=== PATIENT | male | born 1955 | race Two or more races ===

== ENCOUNTER 2021-09-26 17:25 | Emergency (ER) | payer OTHER ==
[~2021-09-26] VITALS: Ht 165.1 cm; Wt 78.0 kg
[2021-09-26] MEDS ORDERED: ALBUTEROL2.5 MG/3 M IH (17:31)
[2021-09-26] MEDS ORDERED: SYMBICORT 16010.2 GM IH (17:31)
[2021-09-26] MEDS ORDERED: MONTELUKAST SOD10 MG PO (17:31)
== END 2021-09-26 22:30 | disposition home or self-care (01) ==
LOC: ER 17:25
DX: M54.50 Low back pain, unspecified (principal); M62.830 Muscle spasm of back

== ENCOUNTER 2022-02-14 14:29 | Emergency (ER) | payer OTHER ==
[~2022-02-14] VITALS: Ht 165.1 cm; Wt 76.2 kg
[~2022-02-14 14:29] MED LIST: ALBUTEROL2.5 MG/3 M IH; MONTELUKAST SOD10 MG PO; SYMBICORT 16010.2 GM IH
== END 2022-02-14 18:40 | disposition home or self-care (01) ==
LOC: ER 14:29
DX: J45.901 Unspecified asthma with (acute) exacerbation (principal); Z20.822 Contact with and (suspected) exposure to COVID-19

== ENCOUNTER → 2022-09-26 | Emergency (ER) | payer OTHER ==
[~2022-09-26] VITALS: Ht 165.1 cm; Wt 68.0 kg
== END | disposition left against medical advice (07) ==
LOC: ER 13:22
DX: Z53.21 Procedure and treatment not carried out due to patient leaving prior to being seen by health care provider (principal)

== ENCOUNTER 2025-02-16 12:43 | Emergency (ER) | payer OTHER ==
[~2025-02-16] VITALS: Ht 165.1 cm; Wt 72.6 kg
== END 2025-02-16 15:42 | disposition home or self-care (01) ==
LOC: ER 12:43
DX: J45.909 Unspecified asthma, uncomplicated (principal)